=== PATIENT | female | born 1960 | race Hispanic/Latino ===

== ENCOUNTER 2020-03-24 08:57 | Emergency (ER) | payer SELFPAY ==
[2020-03-24 08:58] VITALS: BP 168/89; PULSE 68; RESP 16; TEMP 36.9; O2SAT 98; BMI 24.0
--- NOTE | 2020-03-24 09:06 | ED.GENADULT ---
HPI - General Adult General Chief complaint: Skin/Abscess/Foreign Body Stated complaint: treated for shingles, no resolving, vision issue Time Seen by Provider: 03/24/20 08:58 Source: patient Mode of arrival: Ambulatory Limitations: no limitations History of Present Illness HPI narrative: 59-year-old female who 2 weeks ago started noticing a rash on the left side of her face. She was in [place] at the time. Very shortly after she noticed a rash she went to a pharmacy where she was given prednisone. She states that after taking that for short period of time the symptoms seem to get worse so she was sent to a walk-in clinic near the pharmacy where she was diagnosed with shingles. She was started on antiviral medications along with steroids. She has completed the course of this regimen. She states that she is still having irritation and redness to the left forehead specifically to the left eye. She saw her primary doctor yesterday over on [facility] and was told that she should come to the emergency department last evening but she waited until this morning. Patient was placed on valacyclovir. She has never had PRK or LASIK. She wears reading corrective lenses but no contact lenses. No prior eye issues. Review of Systems Constitutional Constitutional: Denies fever(s) and Denies headache(s) Eyes Comments: Left eye redness, irritation, blurry vision, photophobia ENT Ears, Nose, Mouth, and Throat: Denies vertigo, Denies dizziness, Denies headache(s) and Denies sore throat Cardiovascular Cardiovascular: Denies chest pain and Denies dyspnea Respiratory Respiratory: Denies cough and Denies dyspnea Gastrointestinal Gastrointestinal: Denies abdominal pain Musculoskeletal Musculoskeletal: Reports tingling Integumentary/Breasts Skin/Breast: Reports rash Neurologic Neurologic: Denies confusion, Denies vertigo, Denies dizziness, Denies headache(s) and Reports tingling Psychiatric Psychiatric: Denies confusion Hematologic/Lymphatic Hematologic/Lymphatic: Denies easy bleeding and Denies easy bruising Allergic/Immunologic Allergic/Immunologic: Denies urticaria Patient History Medical History Healthy adult Social History lives independently: Yes Smoking Status: Former smoker Exam Initial Vital Signs Initial Vital Signs: Vital Signs Temperature 98.4 F 03/24/20 08:58 Pulse Rate 68 03/24/20 08:58 Respiratory Rate 16 03/24/20 08:58 Blood Pressure 168/89 H 03/24/20 08:58 Pulse Oximetry 98 03/24/20 08:58 Const General: cooperative and comfortable Limitations: mental status not altered [facility] Head: scalp lesion Ears: TM's normal bilaterally Nose: external nose normal and nares normal Face and sinus: other (Rash left forehead) Mouth: oral mucosae normal and lip normal Teeth and gingiva: dentition normal Eyes Cornea: corneas abnormal (Dendrite uptake left cornea) and fluorescein used Pupils: PERRL Resp Effort & Inspection: normal respiratory effort Skin Other: Patient with ulcerations to the left forehead that does not cross midline that is consistent with zoster that appears to be healing Neuro General: patient alert, patient awake and patient oriented x3 Cognition: normal cognition Speech: speech normal Extrem General: capillary refill normal Psych Appearance: grossly normal and well kempt Course Orders Ordered: Discontinued Medications Fluorescein Sodium (Fluorescein 1 Mg Strip) 1 mg EYE-BOTH NOW ONE Stop: 03/24/20 09:06 Last Admin: 03/24/20 09:10 Dose: 1 mg Documented by: KAVON Proparacaine HCl (Proparacaine 0.5% Ophth Radha) 1 drops EYE-LEFT NOW ONE Stop: 03/24/20 09:06 Last Admin: 03/24/20 09:11 Dose: 1 drop Documented by: KAVON Vital Signs Vital signs: Vital Signs - 8 hr 03/24/20 08:58 Temperature 98.4 F Pulse Rate 68 Respiratory Rate 16 Blood Pressure 168/89 H Pulse Oximetry 98 Medical Decision Making [facility] Narrative Medical decision making narrative: Visual acuity noted. OD 2024, OS 20/50. She obviously has shingles to her left forehead. I do not see any active blisters but there are fairly large ulcerations in the area. It does appear that she has fluorescein uptake at the 6 o'clock position of the cornea of her left eye. I did discuss the case with Dr. vera with Ophthalmology who asked the patient be sent over to her office for further evaluation. I did discuss this with the patient. She was given directions to their office. She expressed understanding and agreement. Discharge Plan Departure Patient Disposition: Home Clinical Impression: Herpes zoster, Ophthalmic herpes zoster Instructions: DI for Shingles Activity Restrictions/Additional Instructions: I did discuss your case with Dr. vera with the Ophthalmology Clinic here at the hospital. She would like to see you in the clinic so upon discharge from the emergency department please make your way over to their clinic for further evaluation. Return to the emergency department for any new or worsening symptoms Referrals: Lary Espinal MD [Primary Care Provider] -
[2020-03-24] MEDS: FLUORESCEIN 1 MG STRIP EYE-BOTH (09:10)
[2020-03-24] MEDS: PROPARACAINE 0.5% OPHTH SOL 1 DROPS EYE-LEFT (09:11)
[2020-03-24 10:31] VITALS: BP 141/70; PULSE 68; RESP 16; O2SAT 99
== END 2020-03-24 10:35 | disposition home or self-care (01) ==
PROVIDERS: Emergency Provider Emergency Medicine; PCP Family Medicine
DX: B02.9 Zoster without complications (principal); B02.30 Zoster ocular disease, unspecified
CPT/HCPCS: 99282

== ENCOUNTER → 2021-06-02 09:32 | Outpatient (CLI) | payer OTHER, SELFPAY ==
[2021-06-21 14:08] LABS: EtG EtS LCMS Positive; Ethyl Glucuronide Screen Positive
[2021-06-21 14:09] LABS: Ethyl Sulfate LCMS Positive
== END ==
PROVIDERS: PCP Family Medicine; Visit Provider Physician Assistant Medical
DX: F11.90 Opioid use, unspecified, uncomplicated (principal); M54.50 Low back pain, unspecified
CPT/HCPCS: 80321

== ENCOUNTER → 2021-11-29 10:50 | Outpatient (CLI) | payer OTHER, SELFPAY ==
[2021-11-29 20:13] LABS: Add Manual Diff / Slide Review NO; Basophils Absolute Auto 100 /uL (0-100); Basophils Percent Auto 0.9 % (0-2); Eosinophils Absolute Auto 100 /uL (0-450); Hematocrit 43.4 % (36-46); Hemoglobin 14.9 g/dL (12.0-16.0); Lymphocytes Absolute Auto 1800 /uL (1100-4500); Lymphocytes Percent Auto 26.9 % (25-40); Mean Corpuscular HGB Conc 34.3 % (30-36); Mean Corpuscular Hemoglobin 34.4 PG (26-34); Mean Corpuscular Volume 100.5 fL (80-100); Monocytes Absolute Auto 500 /uL (0-900); Monocytes Percent Auto 7.6 % (3-14); Neutrophils Absolute Auto 4200 /uL (1500-7000); Neutrophils Percent Auto 63.6 % (50-75); Platelet Count 341 X10^3/uL (150-400); Red Blood Cell Count 4.32 X10^6/uL (4.0-5.2); Red Cell Distribution Width 12.8 % (11.6-14.8); White Blood Cell Count 6.6 X10^3/uL (4.5-11.0)
[2021-11-29 20:25] LABS: Alanine Aminotransferase 24 IU/L (<35); Albumin 4.9 g/dL (3.5-5.0); Albumin Globulin Ratio 1.6 (1.0-2.8); Alkaline Phosphatase 60 U/L (38-126); Aspartate Aminotransferase 37 IU/L (14-36); BUN Creatinine Ratio 13.6 (6-22); Bilirubin Total 0.5 mg/dL (0.2-1.3); Blood Urea Nitrogen 8 mg/dL (7-17); Calcium 9.6 mg/dL (8.4-10.2); Carbon Dioxide 27 mmol/L (22-32); Chloride 99 mmol/L (98-107); Cholesterol 215 mg/dL (140-199); Estimated Glomerular Filt Rate > 60 mL/min (>60); Glucose 117 mg/dL (80-110); HDL Cholesterol 77 mg/dL (40-60); HEMOLYSIS < 15 (0-50); LDL Cholesterol Calculated 126 mg/dL (<100); Potassium 4.4 mmol/L (3.4-5.1); Sodium 134 mmol/L (137-145); Total Protein 7.9 g/dL (6.3-8.2); Triglycerides 62 mg/dL (35-150)
[2021-11-29 20:58] LABS: TSH w/ Reflex to FT4 3.22 uIU/mL (0.47-4.68)
== END ==
PROVIDERS: PCP Physician Assistant Medical; Visit Provider Physician Assistant Medical
DX: B02.29 Other postherpetic nervous system involvement (principal); I10 Essential (primary) hypertension; K57.30 Diverticulosis of large intestine without perforation or abscess without bleeding; M48.061 Spinal stenosis, lumbar region without neurogenic claudication; R00.2 Palpitations
CPT/HCPCS: 80053; 80061; 84443; 85025

== ENCOUNTER → 2022-01-13 07:40 | Outpatient (CLI) | payer OTHER, SELFPAY ==
--- NOTE | 2022-01-13 | DI.MG.S_ITS ---
BILATERAL DIGITAL DIAGNOSTIC MAMMOGRAM 3D/2D WITH AUGMENTATION: 01/13/2022 CLINICAL: Right breast lumps. Comparison is made to exam dated: 11/23/2016 mammogram - Outside facility. Both breasts are almost entirely fatty (category a/<25% glandular tissue). No significant masses, calcifications, or other findings are seen in either breast. The implants have a stable appearance along with scattered calcifications of the capsule. IMPRESSION: INCOMPLETE: NEEDS ADDITIONAL IMAGING EVALUATION There is no abnormality seen in the right breast to correspond with the reported nipple abnormality in the sub-areolar depth, however, an ultrasound is recommended for further evaluation and is scheduled to immediately follow this examination. There is no abnormality seen in the right axilla to correspond with the area of palpable abnormality and pain, however, an ultrasound is recommended for further evaluation and is scheduled to immediately follow this examination. There are no abnormalities seen in the right breast to correspond with the palpable nodularities in the outer aspect, however, an ultrasound is recommended for further evaluation and is scheduled to immediately follow this examination. Based on the Tyrer Cuzick model (a risk assessment model) the patient's lifetime risk is 6.0% and her 10 year risk is 2.5%. According to the ACR, ACS, and NCCN guidelines, an annual breast MRI exam along with mammogram is recommended if the patient's lifetime risk is 20% or greater. This exam was interpreted at Station ID: [id number]. NOTE: For mammograms, a report in lay terms will be sent to the patient. Approximately 15% of breast malignancies will not be visualized mammographically. In the management of a palpable breast mass, a negative mammogram must not discourage biopsy of a clinically suspicious lesion. Electronically Signed By: Donis Ribeiro M.D. aty/:01/13/2022 09:29:28 ACR BI-RADS Category 0: Incomplete 3340F
--- NOTE | 2022-01-13 07:41 | DI.US.S_ITS ---
ULTRASOUND OF RIGHT BREAST AND AXILLA: 01/13/2022 CLINICAL: Palpable right breast lump. Comparison is made to exams dated: 01/13/2022 mammogram - [facility] and 11/23/2016 mammogram - Outside facility. Real-time ultrasound of the right breast axilla was performed. Zavala scale images of the real-time examination were reviewed. No significant abnormalities were seen sonographically in the right breast or the right axilla. IMPRESSION: NEGATIVE There is no sonographic evidence of malignancy. There are no abnormalities seen in the right breast or in the right axilla to correspond with the areas of clinical concern described as palpable lateral breast nodularities, nipple changes, and pain in the right axilla, however, recommend clinical follow up for persistent or worsening symptoms, or development of any clinically suspicious findings. A 1 year screening mammogram is recommended. Findings and recommendations were conveyed to the patient during today's evaluation. This exam was interpreted at Station ID: [id number]. Electronically Signed By: Donis Ribeiro M.D. at/:01/13/2022 09:58:00 letter sent: Clinical Evaluation Ultrasound BI-RADS: 1 Negative
== END ==
PROVIDERS: PCP Physician Assistant Medical; Referring Provider Physician Assistant; Visit Provider Physician Assistant
DX: Z13.820 Encounter for screening for osteoporosis (principal); S92.525A Nondisplaced fracture of middle phalanx of left lesser toe(s), initial encounter for closed fracture; N63.10 Unspecified lump in the right breast, unspecified quadrant
CPT/HCPCS: 76642; 77066; 77080; G0279

== ENCOUNTER → 2023-10-18 12:46 | Outpatient (CLI) | payer OTHER, SELFPAY ==
--- NOTE | 2023-10-18 12:47 | DI.MG.S_ITS ---
BILATERAL DIGITAL SCREENING MAMMOGRAM 3D/2D WITH CAD WITH AUGMENTATION: 10/18/2023 CLINICAL: Routine screening. Family history of breast cancer. Comparison is made to exams dated: 01/13/2022 ultrasound, 01/13/2022 mammogram - [facility], and 11/23/2016 mammogram - Outside facility. Both breasts are almost entirely fatty (category a/<25% glandular tissue). Current study was also evaluated with a Computer Aided Detection (CAD) system. Bilateral breast implants are stable and intact. No significant masses, calcifications, or other findings are seen in either breast. There has been no significant interval change. IMPRESSION: NEGATIVE There is no mammographic evidence of malignancy. A 1 year screening mammogram is recommended. Based on the Tyrer Cuzick model (a risk assessment model) the patient's lifetime risk is 3.2% and her 10 year risk is 1.4%. According to the ACR, ACS, and NCCN guidelines, an annual breast MRI exam along with mammogram is recommended if the patient's lifetime risk is 20% or greater. This exam was interpreted at Station ID: [id number]. NOTE: For mammograms, a report in lay terms will be sent to the patient. Approximately 15% of breast malignancies will not be visualized mammographically. In the management of a palpable breast mass, a negative mammogram must not discourage biopsy of a clinically suspicious lesion. Electronically Signed By: Linda carter/luis:10/18/2023 14:24:48 letter sent: Normal Exam ACR BI-RADS Category 1: Negative [id number]
== END ==
PROVIDERS: PCP Family Medicine; Referring Provider Family Medicine; Visit Provider Family Medicine
DX: Z12.31 Encounter for screening mammogram for malignant neoplasm of breast (principal); Z80.3 Family history of malignant neoplasm of breast; R92.313 Mammographic fatty tissue density, bilateral breasts; Z98.82 Breast implant status
CPT/HCPCS: 77063; 77067

== ENCOUNTER → 2023-10-19 10:10 | Outpatient (CLI) | payer OTHER, SELFPAY ==
[2023-10-19 19:48] LABS: Add Manual Diff / Slide Review NO; Basophils Absolute Auto 100 /uL (0-100); Basophils Percent Auto 0.7 % (0-2); Eosinophils Absolute Auto 100 /uL (0-450); Eosinophils Percent Auto 0.6 % (2-4); Hematocrit 42.5 % (36-46); Hemoglobin 14.8 g/dL (12.0-16.0); Lymphocytes Absolute Auto 2000 /uL (1100-4500); Lymphocytes Percent Auto 25.2 % (25-40); Mean Corpuscular HGB Conc 34.8 % (30-36); Mean Corpuscular Hemoglobin 35.8 PG (26-34); Mean Corpuscular Volume 102.6 fL (80-100); Monocytes Absolute Auto 400 /uL (0-900); Monocytes Percent Auto 4.6 % (3-14); Neutrophils Absolute Auto 5500 /uL (1500-7000); Neutrophils Percent Auto 68.9 % (50-75); Platelet Count 285 X10^3/uL (150-400); Red Blood Cell Count 4.14 X10^6/uL (4.0-5.2); Red Cell Distribution Width 12.8 % (11.6-14.8)
[2023-10-19 19:59] LABS: Alanine Aminotransferase 23 IU/L (<35); Albumin 4.7 g/dL (3.5-5.0); Albumin Globulin Ratio 1.6 (1.0-2.8); Alkaline Phosphatase 55 U/L (38-126); Aspartate Aminotransferase 40 IU/L (14-36); BUN Creatinine Ratio 13.4 (6-22); Bilirubin Total 0.9 mg/dL (0.2-1.3); Bilirubin Unconjugated 0.4 mg/dL (0.0-1.1); Blood Urea Nitrogen 9 mg/dL (7-17); Calcium 9.7 mg/dL (8.4-10.2); Carbon Dioxide 23 mmol/L (22-32); Chloride 106 mmol/L (98-107); Cholesterol 216 mg/dL (140-199); Estimated Glomerular Filt Rate > 60 mL/min (>60); Glucose 117 mg/dL (80-110); HDL Cholesterol 76 mg/dL (40-60); HEMOLYSIS < 15 (0-50); LDL Cholesterol Calculated 123 mg/dL (<100); Potassium 4.1 mmol/L (3.4-5.1); Sodium 137 mmol/L (137-145); Total Protein 7.7 g/dL (6.3-8.2); Triglycerides 85 mg/dL (35-150)
[2023-10-19 20:30] LABS: TSH w/ Reflex to FT4 1.32 uIU/mL (0.47-4.68)
[2023-10-19 20:48] LABS: Hep C Virus Ab w/Reflex Quant NEGATIVE s/c (NEGATIVE)
== END ==
PROVIDERS: PCP Family Medicine; Visit Provider Family Medicine
DX: Z13.1 Encounter for screening for diabetes mellitus (principal); Z13.220 Encounter for screening for lipoid disorders; I25.2 Old myocardial infarction; F11.90 Opioid use, unspecified, uncomplicated; R79.89 Other specified abnormal findings of blood chemistry; I10 Essential (primary) hypertension
CPT/HCPCS: 80053; 80061; 80076; 84443; 85025; 86803

== ENCOUNTER → 2025-02-26 13:44 | Outpatient (CLI) | payer OTHER, SELFPAY ==
--- NOTE | 2025-02-26 13:46 | DI.RAD.S_ITS ---
PROCEDURE: XR DEXA AXIAL SKELETON INDICATIONS: Osteopenia COMPARISON: [facility], , XR DEXA AXIAL SKELETON, 01/13/2022, 9:57. FINDINGS: Lumbar Spine: Bone mineral density 0.981 g/cm2, T score -0.3, no significant change. Left Femoral Neck: Bone mineral density 0.618 g/cm2, T score -2.1. Left Hip: Bone mineral density 0.820 g/cm2, T score -1.0, no significant change. Fracture Risk Calculation (when applicable): 10-year fracture risk of a major osteoporotic fracture 6.0 percent and of a hip fracture 0.9 percent. (T score greater or equal to -1.0 to: NORMAL) (T score from -1.1 to -2.4: OSTEOPENIA) (T score less than or equal to -2.5: OSTEOPOROSIS) IMPRESSION: Low bone mineral density (osteopenia) by WHO classification. Follow-up guidelines as follows: Osteoporosis: Consider a repeat DEXA and Vertebral Fracture Assessment (VFA) exam in 2 years or sooner if medically necessary, to reassess this patient's status. Osteopenia: Consider a repeat DEXA in 2-3 years to reassess this patient's status, or if there is a new clinical indication. Normal: Consider a repeat DEXA in 5 years or sooner, or if there is a new clinical indication. All treatment decisions require clinical judgment and consideration of individual patient factors, including patient preferences, comorbidities, previous drug use, risk factors not captured in the FRAX model (e.g., frailty, falls, vitamin D deficiency, increased bone turnover, interval significant decline in bone density ) and possible under- or over-estimation of fracture risk by FRAX. In addition, the NOF Guide recommends that FDA-approved medical therapies be considered in postmenopausal women and men age >= 50 years with a: * Hip or vertebral (clinical or morphometric) fracture * T-score of <=-2.5 at the spine or hip * Ten-year fracture probability by FRAX of >= 3% for hip fracture or >=20% for major osteoporotic fracture. Dictated by: Wilmer Boogie M.D. on 02/26/2025 at 20:35 Approved by: Wilmer Boogie M.D. on 02/26/2025 at 20:36
== END ==
PROVIDERS: PCP Family Medicine; Referring Provider Family Medicine; Visit Provider Family Medicine
DX: M85.852 Other specified disorders of bone density and structure, left thigh (principal); Z78.0 Asymptomatic menopausal state
CPT/HCPCS: 77080

== ENCOUNTER → 2025-04-01 08:52 | Outpatient (CLI) | payer OTHER, SELFPAY ==
[2025-04-01 19:02] LABS: Alanine Aminotransferase 37 IU/L (<35); Albumin 4.3 g/dL (3.5-5.0); Albumin Globulin Ratio 1.5 (1.0-2.8); Alkaline Phosphatase 54 U/L (38-126); Blood Urea Nitrogen 6 mg/dL (7-17); Calcium 9.8 mg/dL (8.4-10.2); Carbon Dioxide 22 mmol/L (22-32); Chloride 105 mmol/L (98-107); Cholesterol 216 mg/dL (140-199); Estimated Glomerular Filt Rate > 60 mL/min (>60); Globulin 2.9 g/dL (1.7-4.1); Glucose 110 mg/dL (70-99); HDL Cholesterol 72 mg/dL (40-60); HEMOLYSIS < 15 (0-50); Potassium 4.5 mmol/L (3.4-5.1); Sodium 136 mmol/L (137-145); Total Protein 7.2 g/dL (6.3-8.2); Triglycerides 68 mg/dL (35-150)
[2025-04-01 19:03] LABS: Add Manual Diff / Slide Review NO; Hematocrit 41.9 % (36-46); Hemoglobin 14.9 g/dL (12.0-16.0); Lymphocytes Absolute Auto 2400 /uL (1100-4500); Mean Corpuscular HGB Conc 35.5 % (30-36); Mean Corpuscular Hemoglobin 36.0 PG (26-34); Mean Corpuscular Volume 101.5 fL (80-100); Platelet Count 300 X10^3/uL (150-400)
[2025-04-01 19:19] LABS: Vitamin D 25 Hydroxy (D3) 35.3 ng/mL (30.0-100.0)
== END ==
PROVIDERS: PCP Family Medicine; Visit Provider Family Medicine
DX: I25.2 Old myocardial infarction (principal); I10 Essential (primary) hypertension; R79.89 Other specified abnormal findings of blood chemistry
CPT/HCPCS: 80053; 80061; 82306; 85025